=== PATIENT | female | born 1945 | race Caucasian/White ===

== ENCOUNTER 2017-08-15 00:01 | Emergency (ER) | payer OTHER ==
[~2017-08-15] VITALS: Ht 162.6 cm; Wt 80.3 kg
[~2017-08-15 00:01] MED LIST: ALEVE220 M1; CALCIUM500 M1; MOTION RELIEF25 MG PO; MULTIVITAMINS1 EAC7; ZANTAC 150MG T150 M1
[2017-08-15] MEDS ORDERED: ZOCOR20 MG PO (00:17)
[2017-08-15 01:03] VITALS: BP 168/78
== END 2017-08-15 01:04 | disposition home or self-care (01) ==
LOC: ER 00:01
DX: S60.212A Contusion of left wrist, initial encounter (principal); F10.99 Alcohol use, unspecified with unspecified alcohol-induced disorder; X58.XXXA Exposure to other specified factors, initial encounter; Y93.89 Activity, other specified; Y92.89 Other specified places as the place of occurrence of the external cause; Y99.8 Other external cause status